=== PATIENT | female | born 1935 | race Caucasian/White ===

== ENCOUNTER 2016-10-09 15:12 | Inpatient (IN) | payer MEDICARE ==
[2016-10-09] MEDS: NS 0.9% 1000 ML* 3,000 ML IV ONE ×3 (16:00→18:50)
[2016-10-09] MEDS ORDERED: Ondansetron INJ* 2 MG/ML VIAL IV ONE (16:15)
[2016-10-09 16:26] LABS: Hematocrit 39 % (35-47); Hemoglobin 12.9 g/dl (12.0-16.0); Mean Corpuscular HGB Conc 33 g/dl (31-36); Mean Corpuscular Hemoglobin 28 pg (27-31); Mean Corpuscular Volume 84 fL (80-97); Mean Platelet Volume 8 um3 (7.4-10.4); Red Blood Count 4.69 10^6/ul (4.0-5.4); Red Cell Distribution Width 14 % (10.5-15); White Blood Count 16.2 10^3/ul (3.5-10.8)
[2016-10-09 16:45] LABS: Albumin 3.6 g/dL (3.2-5.2); BUN/Creatinine Ratio 27.6 (8-20); C Reactive Protein 1.92 mg/L (< 5.00); Calcium 8.9 mg/dL (8.6-10.3); EGFR African American 94.4 (>60); EGFR Non-African American 73.4 (>60); Globulin 2.6 g/dL (2-4); Magnesium 2.1 mg/dL (1.9-2.7); Potassium 3.4 mmol/L (3.5-5.0); Total Bilirubin 0.6 mg/dL (0.2-1.0); Total Protein 6.2 g/dL (6.4-8.9)
--- NOTE | 2016-10-09 16:45 | RAD ---
INDICATION: Syncope COMPARISON: November 14, 2013 TECHNIQUE: An AP portable view obtained at 1624 hours is submitted. FINDINGS: Bones/Soft Tissues: There are no acute bony findings. Cardiomediastinal: The cardiomediastinal silhouette is normal. Lungs: There are no infiltrates. Pleura: There are no pleural effusions. Other: None IMPRESSION: NO ACTIVE DISEASE.
[2016-10-09] MEDS ORDERED: Iohexol 300* (CONTRAST) 10 ML SDV IV ONE (17:26)
[2016-10-09 17:28] LABS: TSH (Thyroid Stimulating Horm) 2.25 mcIU/mL (0.34-5.60)
--- NOTE | 2016-10-09 18:05 | RAD ---
INDICATION: Abdominal pain. Vomiting. Syncope. COMPARISON: None TECHNIQUE: Axial source images were obtained from the hemidiaphragms to the symphysis pubis. The patient refused oral and intravenous contrast leading to inherent limitations. Lung bases: There are pleural and parenchymal changes in the right lung base which may be chronic. Suggest a follow-up chest x-ray.. Liver: The liver is normal in size. There are no masses identified on noncontrast imaging. There is no ductal dilatation. Gallbladder: There are no calcified gallstones. There is no evidence of wall thickening or pericholecystic fluid. Spleen: The spleen is normal in size. There are no masses identified on noncontrast imaging. Pancreas: No gross abnormalities. No ductal dilatation. Adrenal glands: There is no evidence of adrenal mass. Kidneys: No mass or hydronephrosis. No nephrolithiasis Adenopathy: This examination is insensitive in evaluating for adenopathy given the lack of oral and intravenous contrast. No masses are seen, however.. Fluid collections: There are no significant free or localized fluid collections. Vessels:There are atherosclerotic changes involving the aorta and iliac vessels. There is no focal aneurysm. The IVC appears normal. GI tract: Evaluation of the GI tract is very limited. There does appear to be bowel wall thickening and perienteric stranding at the level of the mid transverse colon and extending down to the level of the rectosigmoid junction. There are scattered diverticula of the sigmoid colon. There are no findings of pneumatosis, obstruction, or free intraperitoneal air. Pelvic organs: There is hysterectomy. There is no adnexal mass Bladder: There are no bladder masses. Abdominal and pelvic soft tissues: The extraperitoneal abdominal and pelvic soft tissues appear normal.. Osseous structures: There are no acute osseous findings. Other: None IMPRESSION: MUCOSAL EDEMA AND PERIENTERIC STRANDING EXTENDING FROM THE MID TRANSVERSE COLON TO THE RECTOSIGMOID COLON. AN INFECTIOUS/INFLAMMATORY COLITIS IS CONSIDERED STATISTICALLY MOST LIKELY. NO FINDINGS OF PNEUMATOSIS OR FREE INTRAPERITONEAL AIR.
[2016-10-09] MEDS ORDERED: cefTRIAXone(*) 1 GM in NS 0.9% 50 ML* 50 ML IVPB ONE (18:21)
[2016-10-09] MEDS ORDERED: metroNIDAZOLE IV 500 MG/100ML* 500 MG/100 ML BAG IVPB ONE (18:21)
--- NOTE | 2016-10-09 18:55 | ED ---
Yakov Rodas Billy, scribed for Rodolfo Escalera MD on 10/09/16 at 1613 . Syncope/Near Syncope - HPI Summary HPI Summary: Patient is a 81 year-old female coming to [facility] after 2x syncopal episodes earlier today. Her states that she had several episodes of N/V/D this morning and appeared much paler than usual. He denies any fever, blood in the stool. Nothing makes her symptoms better/worse. During her syncopal episodes, he denies any head trauma. Here in the ED, she complains of abdominal pain. She takes baby ASA daily, no other medications. - History Of Current Complaint Chief Complaint: EDSyncope Time Seen by Provider: 10/09/16 16:08 Hx Obtained From: Patient, Family/Patient Care Coordinator Onset/Duration: Sudden Onset Timing: Intermittent Episode Lasting Context: Unwitnessed Activity At Onset: At Rest Associated Head Trauma: No Aggravating Factor(s): Nothing Alleviating Factor(s): Nothing Associated Signs And Symptoms: Diarrhea, Vomiting, Other - nausea; pale - Allergies/Home Medications Allergies/Adverse Reactions: Allergies Allergy/AdvReac Type Severity Reaction Status Date / Time No Known Allergies Allergy Verified 08/08/12 20:02 Home Medications: Home Medications Aspirin EC Low Dose* [Ecotrin EC Low Dose*] 81 mg PO DAILY 10/09/16 [History Confirmed 10/09/16] PMH/Surg Hx/FS Hx/Imm Hx Endocrine/Hematology History: Reports: Hx Thyroid Disease - NODULE 2008 BIOPSIED Denies: Hx Diabetes Cardiovascular History: Reports: Hx Congenital Heart Disease - atrioseptal deficit, Hx Syncope - post TIA in 2009, Other Cardiovascular Problems/Disorders - atrioseptal defect Denies: Hx Congestive Heart Failure, Hx Hypertension, Hx Pacemaker/ICD Respiratory History: Denies: Hx Asthma History: Denies: Hx Renal Disease Musculoskeletal History: Reports: Hx Arthritis - hands Sensory History: Reports: Hx Contacts or Glasses Denies: Hx Hearing Aid Opthamlomology History: Reports: Hx Contacts or Glasses Neurological History: Reports: Hx Transient Ischemic Attacks (TIA) - TIAs 2000, 2008, 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 night Denies: Other Neuro Impairments/Disorders Psychiatric History: Denies: Hx Panic Disorder - Surgical History Surgery Procedure, Year, and Place: T&A, D&C'S, HYSTERECTOMY - Immunization History Date of Tetanus Vaccine: UTD Date of Influenza Vaccine: FALL 2011 Infectious Disease History: No Infectious Disease History: Denies: Traveled Outside the [place] in Last 30 Days - Family History Known Family History: Positive: Cardiac Disease - father; at age 80 - Social History Alcohol Use: None Substance Use Type: Reports: None Review of Systems Negative: Fever Positive: Abdominal Pain, Vomiting, Diarrhea, Nausea Positive: Other - pale Neurological: Other - syncope All Other Systems Reviewed And Are Negative: Yes Physical Exam Triage Information Reviewed: Yes Vital Signs On Initial Exam: Initial Vitals Temp Pulse Resp BP Pulse Ox 97.5 F 94 16 157/100 100 10/09/16 15:30 10/09/16 15:30 10/09/16 15:30 10/09/16 15:30 10/09/16 15:30 Vital Signs Reviewed: Yes Appearance: Positive: No Pain Distress, Ill-Appearing Skin: Positive: Pale Eyes: Positive: EOMI, [place] ENT: Positive: Other - dry mucous membranes Neck: Positive: Supple, Nontender Respiratory/Lung Sounds: Positive: Clear to Auscultation, Breath Sounds Present Cardiovascular: Positive: RRR Abdomen Description: Positive: Other: - diffuse tenderness Bowel Sounds: Positive: Present Musculoskeletal: Positive: Normal, Strength/ROM Intact Neurological: Positive: Alert, Oriented to Person Place, Time, CN Intact II-III , Other - slightly decreased responsiveness, but responds to voice Psychiatric: Positive: Affect/Mood Appropriate Diagnostics - Vital Signs Vital Signs Temp Pulse Resp BP Pulse Ox 10/09/16 15:30 97.5 F 94 16 157/100 100 - Laboratory Lab Results: Lab Results 10/09/16 10/09/16 10/09/16 Range/Units 16:15 16:15 16:15 WBC 16.2 H (3.5-10.8) 10^3/ul RBC 4.69 (4.0-5.4) 10^6/ul Hgb 12.9 (12.0-16.0) g/dl Hct 39 (35-47) % MCV 84 (80-97) fL MCH 28 (27-31) pg MCHC 33 (31-36) g/dl RDW 14 (10.5-15) % Plt Count 175 (150-450) 10^3/ul MPV 8 (7.4-10.4) um3 Neut % (Auto) 91.7 H (38-83) % Lymph % (Auto) 2.0 L (25-47) % [place] % (Auto) 5.4 (1-9) % Eos % (Auto) 0 (0-6) % Baso % (Auto) 0.9 (0-2) % Absolute Neuts (auto) 14.8 H (1.5-7.7) 10^3/ul Absolute Lymphs (auto) 0.3 L (1.0-4.8) 10^3/ul Absolute Monos (auto) 0.9 H (0-0.8) 10^3/ul Absolute Eos (auto) 0 (0-0.6) 10^3/ul Absolute Basos (auto) 0.2 (0-0.2) 10^3/ul Absolute Nucleated RBC 0 10^3/ul Nucleated RBC % 0 INR (Anticoag Therapy) 0.92 (0.89-1.11) APTT 28.0 (26.0-36.3) seconds Sodium 136 (133-145) mmol/L Potassium 3.4 L (3.5-5.0) mmol/L Chloride 104 (101-111) mmol/L Carbon Dioxide 26 (22-32) mmol/L Anion Gap 6 (2-11) mmol/L BUN 21 (6-24) mg/dL Creatinine 0.76 (0.51-0.95) mg/dL Est GFR ( Amer) 94.4 (>60) Est GFR (Non-Af Amer) 73.4 (>60) BUN/Creatinine Ratio 27.6 H (8-20) Glucose 166 H (70-100) mg/dL Lactic Acid (0.5-2.0) mmol/L Calcium 8.9 (8.6-10.3) mg/dL Magnesium 2.1 (1.9-2.7) mg/dL Total Bilirubin 0.60 (0.2-1.0) mg/dL AST 32 (13-39) U/L ALT 29 (7-52) U/L Alkaline Phosphatase 85 (34-104) U/L Total Creatine Kinase 38 (10-223) U/L CK-MB (CK-2) 1.6 (0.6-6.3) ng/mL Troponin I 0.00 (<0.04) ng/mL C-Reactive Protein 1.92 (< 5.00) mg/L B-Natriuretic Peptide ( - 100) pg/mL Total Protein 6.2 L (6.4-8.9) g/dL Albumin 3.6 (3.2-5.2) g/dL Globulin 2.6 (2-4) g/dL Albumin/Globulin Ratio 1.4 (1-3) Lipase 22 (11.0-82.0) U/L TSH 2.25 (0.34-5.60) mcIU/mL 10/09/16 10/09/16 Range/Units 16:15 16:15 WBC (3.5-10.8) 10^3/ul RBC (4.0-5.4) 10^6/ul Hgb (12.0-16.0) g/dl Hct (35-47) % MCV (80-97) fL MCH (27-31) pg MCHC (31-36) g/dl RDW (10.5-15) % Plt Count (150-450) 10^3/ul MPV (7.4-10.4) um3 Neut % (Auto) (38-83) % Lymph % (Auto) (25-47) % [place] % (Auto) (1-9) % Eos % (Auto) (0-6) % Baso % (Auto) (0-2) % Absolute Neuts (auto) (1.5-7.7) 10^3/ul Absolute Lymphs (auto) (1.0-4.8) 10^3/ul Absolute Monos (auto) (0-0.8) 10^3/ul Absolute Eos (auto) (0-0.6) 10^3/ul Absolute Basos (auto) (0-0.2) 10^3/ul Absolute Nucleated RBC 10^3/ul Nucleated RBC % INR (Anticoag Therapy) (0.89-1.11) APTT (26.0-36.3) seconds Sodium (133-145) mmol/L Potassium (3.5-5.0) mmol/L Chloride (101-111) mmol/L Carbon Dioxide (22-32) mmol/L Anion Gap (2-11) mmol/L BUN (6-24) mg/dL Creatinine (0.51-0.95) mg/dL Est GFR ( Amer) (>60) Est GFR (Non-Af Amer) (>60) BUN/Creatinine Ratio (8-20) Glucose (70-100) mg/dL Lactic Acid 1.2 (0.5-2.0) mmol/L Calcium (8.6-10.3) mg/dL Magnesium (1.9-2.7) mg/dL Total Bilirubin (0.2-1.0) mg/dL AST (13-39) U/L ALT (7-52) U/L Alkaline Phosphatase (34-104) U/L Total Creatine Kinase (10-223) U/L CK-MB (CK-2) (0.6-6.3) ng/mL Troponin I (<0.04) ng/mL C-Reactive Protein (< 5.00) mg/L B-Natriuretic Peptide 49 ( - 100) pg/mL Total Protein (6.4-8.9) g/dL Albumin (3.2-5.2) g/dL Globulin (2-4) g/dL Albumin/Globulin Ratio (1-3) Lipase (11.0-82.0) U/L TSH (0.34-5.60) mcIU/mL Result Diagrams: 10/09/16 16:15 10/09/16 16:15 Lab Statement: Any lab studies that have been ordered have been reviewed, and results considered in the medical decision making process. - Radiology CXR Xray Interpretation: No Acute Changes Radiology Interpretation Completed By: Radiologist - CT abd/pel wo CT Interpretation Completed By: Radiologist - MUCOSAL EDEMA AND PERIENTERIC STRANDING EXTENDING FROM THE MID TRANSVERSE COLON TO THE RECTOSIGMOID COLON. AN INFECTIOUS/INFLAMMATORY COLITIS IS CONSIDERED STATISTICALLY MOST LIKELY. NO FINDINGS OF PNEUMATOSIS OR FREE INTRAPERITONEAL AIR. - EKG 1532 EKG Interpretation: NSR 89 bpm, normal ST segment, no ectopy Re-Evaluation - Re-Evaluation First Eval Re-Evaluation Time: 16:29 Comment: Patient declining CT at this time. Second Eval Re-Evaluation Time: 17:06 Change: Improved Comment: Patient agrees to have CT without PO contrast. Third Eval Re-Evaluation Time: 18:32 Course/Dx Assessment/Plan: ADMIT HOSPITALIST STABLE. - Diagnoses Provider Diagnoses: Syncope, Colitis - Physician Notifications Discussed Care Of Patient With: Dr. Roasrio (hospitalist) @ 171: admission pending CT abd/pel. Dr. Thao (hospitalist) @ 182: will see patient in the ED. Discharge - Discharge Plan Condition: Stable Disposition: ADMITTED TO [facility] Referrals: Philip Burch MD [Primary Care Provider] - The documentation as recorded by the Yakov boyd Billy accurately reflects the service I personally performed and the decisions made by me, Rodolfo Escalera MD.
[2016-10-09] MEDS ORDERED: Ondansetron INJ* 2 MG/ML VIAL IV PRN (19:15)
[2016-10-09] MEDS ORDERED: Acetaminophen TAB* 325 MG PO PRN (19:15)
[2016-10-09] MEDS ORDERED: Morphine INJ* 2 MG/ML 1 ML CARPUJECT IV PRN (19:15)
[2016-10-09] MEDS ORDERED: Enoxaparin(*) 40 MG/0.4 ML SYR SUBCUT SCH (20:00)
--- NOTE | 2016-10-09 20:55 | HP ---
ADMISSION HISTORY AND PHYSICAL: DATE OF ADMISSION: 10/09/16 PRIMARY CARE PROVIDER: Philip Burch MD ADMITTING PROVIDER: FRANCISCO Lim SUPERVISING PHYSICIAN: Edita Thao MD * (DICTATED BY FRANCISCO LIM) CHIEF COMPLAINT: Nausea, vomiting, diarrhea, and syncope. HISTORY OF PRESENT ILLNESS: This is a 81-year-old female who is relatively healthy. She has a history of ASD, osteoarthritis and what sounds like may be partial seizures, but not currently on any medication and followed by Neurology , who presented to the emergency department today with rather sudden onset of nausea, vomiting, and diarrhea. It started after breakfast this morning. Her who ate with her has not been ill. She was feeling well yesterday and has not been running any fevers at home. She has some associated cramping abdominal pain. She has been feeling quite lightheaded and dizzy and has had frequent episodes of diarrhea and vomiting throughout the day today. On two occasions after attempting to standup from the toilet, she collapsed and lost consciousness for a period of time. No seizure-like activity according to her , who witnessed at least one of the events. The patient has not been able to tolerate anything my mouth throughout the day today. The patient denies any recent antibiotic use. PAST MEDICAL HISTORY: 1. ASD. 2. History of partial seizures perhaps. Followed by Neurology, not currently on any medications. 3. Osteoarthritis. PAST SURGICAL HISTORY: Hysterectomy. HOME MEDICATIONS: Aspirin 81 mg p.o. daily. SOCIAL HISTORY: The patient lives at home with her . She denies any smoking history. No regular alcohol consumption. REVIEW OF SYSTEMS: As noted above in HPI and is otherwise negative. PHYSICAL EXAMINATION GENERAL: This is a pleasant, but ill-appearing female, in no acute distress, accompanied by her . VITAL SIGNS: Temperature 97.5 degrees Fahrenheit, pulse 94 beats per minute, respiratory rate 16 per minute, oxygen saturation 100% on room air, blood pressure 157/100 mmHg. HEENT: Head is normocephalic, atraumatic. Mucous membranes are pink and mildly dry. RESPIRATORY: Lungs are clear to auscultation without wheezes, crackles, or rhonchi. CARDIOVASCULAR: Heart has a regular rate and rhythm without murmurs, rubs, or gallops. ABDOMEN: Abdomen is soft with bowel sounds present, but is diffusely tender to palpation. EXTREMITIES: The patient shows no lower extremity edema. SKIN: The patient has a kind of erythematous petechial rash over her lower extremities bilaterally, which she states is chronic for her. PSYCH: The patient is alert and appropriately oriented. DIAGNOSTIC STUDIES/LAB DATA: CBC shows a white blood cell count of 16,200, hemoglobin of 12.9 g/dL, platelet count of 175,000. INR is normal at 0.92 and PTT of 28. Comprehensive metabolic panel shows a sodium of 136 mmol/L, potassium of 3.4 mmol/L. BUN of 21, creatinine 0.76. Random glucose of 166 mg/dL. Transaminases and total bilirubin within normal limits. Troponin is negative. TSH is normal at 2.25 and lipase is normal at 22. IMAGING: EKG shows a normal sinus rhythm. CT of the abdomen and pelvis shows some inflammatory changes consistent with colitis of the transverse through rectosigmoid colon consistent with an infectious or inflammatory colitis. ASSESSMENT AND PLAN: This is a 81-year-old female who is otherwise quite healthy apart from an atrial septal defect and questionable partial seizure disorder, who presented with acute onset nausea, vomiting and diarrhea with 2 syncopal episodes. The patient will be admitted to the hospital for infectious colitis. 1. Suspected infectious colitis - the patient denies any recent antibiotic use. Stool studies including C. diff, PCR are pending at this time. We will empirically treat with Cipro and Flagyl. Supportive care with fluids and antiemetics and pain medication as necessary. 2. Syncope - this is likely a vagal episode and/or due to orthostasis secondary to hypovolemia. We will place her on telemetry monitoring overnight to evaluate for dysrhythmia, but this does not seem to be cardiogenic in origin. This does not seem to represent a seizure either. 3. Atrial septal defect. 4. History of partial seizures, followed by Neurology, but not currently treated. 5. Code status - the patient is full code. 6. DVT prophylaxis - the patient will be started on Lovenox 40 mg subcu daily. 7. Healthcare proxy is her . DISPOSITION: The patient is being admitted to the hospital under inpatient status for infectious colitis and syncope. I anticipate length of stay of greater than 2 midnights. FRANCISCO LIM [id number]/[facility] #: [id number] [facility]ALL[facility]
[2016-10-09] MEDS: Ciprofloxacin 400MG IVPREMIX(* 400 MG/200 ML BAG IVPB SCH (21:22)
[2016-10-10] MEDS: metroNIDAZOLE IV 500 MG/100ML* 500 MG/100 ML BAG IVPB SCH ×3 (04:06→20:12)
[2016-10-10 05:28] LABS: Hematocrit 37 % (35-47); Hemoglobin 12.5 g/dl (12.0-16.0); Mean Corpuscular HGB Conc 33 g/dl (31-36); Mean Corpuscular Hemoglobin 28 pg (27-31); Mean Corpuscular Volume 84 fL (80-97); Mean Platelet Volume 9 um3 (7.4-10.4); Red Blood Count 4.44 10^6/ul (4.0-5.4); Red Cell Distribution Width 14 % (10.5-15); White Blood Count 18.4 10^3/ul (3.5-10.8)
[2016-10-10 05:40] LABS: BUN/Creatinine Ratio 21.3 (8-20); Calcium 8.2 mg/dL (8.6-10.3); EGFR African American 95.9 (>60); EGFR Non-African American 74.5 (>60)
[2016-10-10] MEDS: Ciprofloxacin 400MG IVPREMIX(* 400 MG/200 ML BAG IVPB SCH ×2 (07:51→21:38)
[2016-10-10] MEDS: Aspirin EC Low Dose* 81 MG TAB.EC PO SCH ×2 (10:09→10:19)
[2016-10-10] MEDS: Potassium Chlor TAB* 20 MEQ TAB.ER PO ONE ×2 (10:09→10:20)
[2016-10-10] MEDS ORDERED: Potassium Chloride LIQUID* 20 MEQ PACKET PO ONE (11:00)
--- NOTE | 2016-10-10 15:46 | PN ---
Subjective Date of Service: 10/10/16 Interval History: Pt started having hematochezia that progressed to BRBPR after admission. Denies abd pain, although c/o severe abd cramping yesterday Objective Active Medications: Acetaminophen (Tylenol Tab*) 650 mg PO Q4H PRN PRN Reason: FEVER/PAIN Enoxaparin Sodium (Lovenox(*)) 40 mg SUBCUT Q24H [facility] Last Admin: 10/09/16 21:22 Dose: 40 mg Ciprofloxacin/Dextrose (Cipro 400 Mg Ivpremix(*)) 400 mg in 200 mls @ 200 mls/ hr IVPB Q12H [facility] Last Admin: 10/10/16 07:51 Dose: 200 mls/hr Metronidazole/Sodium Chloride (Flagyl 500 Mg Ivpb*) 500 mg in 100 mls @ 100 mls /hr IVPB Q8H [facility] Last Admin: 10/10/16 11:57 Dose: 100 mls/hr Lactated Ringer's (Lactated Ringers 1000 Ml Bag*) 1,000 mls @ 125 mls/hr IV PER RATE [facility] Last Admin: 10/10/16 07:51 Dose: 125 mls/hr Morphine Sulfate (Morphine Inj (Syringe)*) 2 mg IV Q4H PRN PRN Reason: PAIN Ondansetron HCl (Zofran Inj*) 4 mg IV Q4H PRN PRN Reason: NAUSEA/VOMITING Last Admin: 10/09/16 22:19 Dose: 4 mg Vital Signs 10/09/16 10/09/16 10/09/16 19:30 19:42 20:00 Temperature Pulse Rate 87 Respiratory 20 17 18 Rate Blood Pressure 141/119 111/61 (mmHg) O2 Sat by Pulse 97 Oximetry 10/09/16 10/09/16 10/09/16 20:19 20:30 21:41 Temperature 99 F Pulse Rate 89 Respiratory 17 20 Rate Blood Pressure 153/77 (mmHg) O2 Sat by Pulse 99 Oximetry 10/10/16 10/10/16 10/10/16 00:08 04:14 04:18 Temperature 97.2 F 98.7 F Pulse Rate 93 98 96 Respiratory 16 16 Rate Blood Pressure 151/64 153/65 153/65 (mmHg) O2 Sat by Pulse 97 97 Oximetry 10/10/16 10/10/16 10/10/16 04:19 07:25 08:00 Temperature 98.6 F Pulse Rate 104 101 Respiratory 18 18 Rate Blood Pressure 126/89 148/68 (mmHg) O2 Sat by Pulse 99 Oximetry 10/10/16 11:30 Temperature 98.2 F Pulse Rate 99 Respiratory 16 Rate Blood Pressure 145/57 (mmHg) O2 Sat by Pulse 100 Oximetry Oxygen Devices in Use Now: None Appearance: 81 yo F in nAd, aAOx3 Eyes: No Scleral Icterus, PERRLA Ears/Nose/Mouth/Throat: NL Teeth, Lips, Gums, Mucous Membranes Moist Neck: NL Appearance and Movements; NL JVP, Trachea Midline Respiratory: Symmetrical Chest Expansion and Respiratory Effort, Clear to Auscultation Cardiovascular: NL Sounds; No Murmurs; No JVD, RRR Abdominal: NL Sounds; No Tenderness; No Distention, - - LLQ tenderness, no rebound, no guarding, BS+ Lymphatic: No Cervical Adenopathy Extremities: No Edema, No Clubbing, Cyanosis Skin: No Rash or Ulcers, No Nodules or Sclerosis Neurological: Alert and Oriented x 3, NL Muscle Strength and Tone Result Diagrams: 10/10/16 04:32 10/10/16 04:32 Additional Lab and Data: Lab Results 10/09/16 10/09/16 10/09/16 Range/Units 16:15 16:15 16:15 WBC 16.2 H (3.5-10.8) 10^3/ul RBC 4.69 (4.0-5.4) 10^6/ul Hgb 12.9 (12.0-16.0) g/dl Hct 39 (35-47) % MCV 84 (80-97) fL MCH 28 (27-31) pg MCHC 33 (31-36) g/dl RDW 14 (10.5-15) % Plt Count 175 (150-450) 10^3/ul MPV 8 (7.4-10.4) um3 Neut % (Auto) 91.7 H (38-83) % Lymph % (Auto) 2.0 L (25-47) % [place] % (Auto) 5.4 (1-9) % Eos % (Auto) 0 (0-6) % Baso % (Auto) 0.9 (0-2) % Absolute Neuts (auto) 14.8 H (1.5-7.7) 10^3/ul Absolute Lymphs (auto) 0.3 L (1.0-4.8) 10^3/ul Absolute Monos (auto) 0.9 H (0-0.8) 10^3/ul Absolute Eos (auto) 0 (0-0.6) 10^3/ul Absolute Basos (auto) 0.2 (0-0.2) 10^3/ul Absolute Nucleated RBC 0 10^3/ul Nucleated RBC % 0 INR (Anticoag Therapy) 0.92 (0.89-1.11) APTT 28.0 (26.0-36.3) seconds Sodium 136 (133-145) mmol/L Potassium 3.4 L (3.5-5.0) mmol/L Chloride 104 (101-111) mmol/L Carbon Dioxide 26 (22-32) mmol/L Anion Gap 6 (2-11) mmol/L BUN 21 (6-24) mg/dL Creatinine 0.76 (0.51-0.95) mg/dL Est GFR ( Amer) 94.4 (>60) Est GFR (Non-Af Amer) 73.4 (>60) BUN/Creatinine Ratio 27.6 H (8-20) Glucose 166 H (70-100) mg/dL Lactic Acid (0.5-2.0) mmol/L Calcium 8.9 (8.6-10.3) mg/dL Magnesium 2.1 (1.9-2.7) mg/dL Total Bilirubin 0.60 (0.2-1.0) mg/dL AST 32 (13-39) U/L ALT 29 (7-52) U/L Alkaline Phosphatase 85 (34-104) U/L Total Creatine Kinase 38 (10-223) U/L CK-MB (CK-2) 1.6 (0.6-6.3) ng/mL Troponin I 0.00 (<0.04) ng/mL C-Reactive Protein 1.92 (< 5.00) mg/L B-Natriuretic Peptide ( - 100) pg/mL Total Protein 6.2 L (6.4-8.9) g/dL Albumin 3.6 (3.2-5.2) g/dL Globulin 2.6 (2-4) g/dL Albumin/Globulin Ratio 1.4 (1-3) Lipase 22 (11.0-82.0) U/L TSH 2.25 (0.34-5.60) mcIU/mL 10/09/16 10/09/16 Range/Units 16:15 16:15 WBC (3.5-10.8) 10^3/ul RBC (4.0-5.4) 10^6/ul Hgb (12.0-16.0) g/dl Hct (35-47) % MCV (80-97) fL MCH (27-31) pg MCHC (31-36) g/dl RDW (10.5-15) % Plt Count (150-450) 10^3/ul MPV (7.4-10.4) um3 Neut % (Auto) (38-83) % Lymph % (Auto) (25-47) % [place] % (Auto) (1-9) % Eos % (Auto) (0-6) % Baso % (Auto) (0-2) % Absolute Neuts (auto) (1.5-7.7) 10^3/ul Absolute Lymphs (auto) (1.0-4.8) 10^3/ul Absolute Monos (auto) (0-0.8) 10^3/ul Absolute Eos (auto) (0-0.6) 10^3/ul Absolute Basos (auto) (0-0.2) 10^3/ul Absolute Nucleated RBC 10^3/ul Nucleated RBC % INR (Anticoag Therapy) (0.89-1.11) APTT (26.0-36.3) seconds Sodium (133-145) mmol/L Potassium (3.5-5.0) mmol/L Chloride (101-111) mmol/L Carbon Dioxide (22-32) mmol/L Anion Gap (2-11) mmol/L BUN (6-24) mg/dL Creatinine (0.51-0.95) mg/dL Est GFR ( Amer) (>60) Est GFR (Non-Af Amer) (>60) BUN/Creatinine Ratio (8-20) Glucose (70-100) mg/dL Lactic Acid 1.2 (0.5-2.0) mmol/L Calcium (8.6-10.3) mg/dL Magnesium (1.9-2.7) mg/dL Total Bilirubin (0.2-1.0) mg/dL AST (13-39) U/L ALT (7-52) U/L Alkaline Phosphatase (34-104) U/L Total Creatine Kinase (10-223) U/L CK-MB (CK-2) (0.6-6.3) ng/mL Troponin I (<0.04) ng/mL C-Reactive Protein (< 5.00) mg/L B-Natriuretic Peptide 49 ( - 100) pg/mL Total Protein (6.4-8.9) g/dL Albumin (3.2-5.2) g/dL Globulin (2-4) g/dL Albumin/Globulin Ratio (1-3) Lipase (11.0-82.0) U/L TSH (0.34-5.60) mcIU/mL Microbiology and Other Data: Microbiology 10/09/16 20:15 Stool Gross Appearance - Final Stool C. difficile DNA Amplification - Final 027 Presumptive NEGATIVE Toxigenic C.diff NEGATIVE Stool Lactoferrin - Final 10/09/16 20:15 Stool Gross Appearance - Final Stool 10/09/16 20:15 Stool Gross Appearance - Final Stool Stool Occult Blood (MARCIA) - Final Assess/Plan/Problems-Billing Assessment: - Patient Problems (1) Lower GI bleed Comment: mild, suspect infectious or iuschemic colitis. Acute , lower D/c ASA and DVT prophylaxis. Protonix IV daily Chrck H&H in aM (2) Colitis Comment: infectious vs ischemic. symptoms improving, but leukocytosis worse cont Cipro/Flagyl GI consulted (3) Syncope due to orthostatic hypotension Comment: And dehydration. Orthostasis documented in ED. cont IVF telemtry shows no arrythmia, will d/c (4) Hypokalemia Comment: replacing IV (5) DVT prophylaxis Comment: SCD's, no anticoagulation due to GI bleed
[2016-10-10] MEDS: Pantoprazole IV* 40 MG IV SCH (16:06)
[2016-10-10 16:53] LABS: Hematocrit 34 % (35-47); Hemoglobin 11.3 g/dl (12.0-16.0); Mean Corpuscular HGB Conc 33 g/dl (31-36); Mean Corpuscular Hemoglobin 28 pg (27-31); Mean Corpuscular Volume 84 fL (80-97); Mean Platelet Volume 8 um3 (7.4-10.4); Red Blood Count 4.04 10^6/ul (4.0-5.4); Red Cell Distribution Width 14 % (10.5-15)
--- NOTE | 2016-10-10 22:13 | CONS ---
CONSULTATION REPORT: DATE OF CONSULTATION: 10/10/16 REQUESTING PHYSICIAN: Dr. Thao. PRIMARY CARE PHYSICIAN: Philip Burch MD INDICATION: Colitis. NARRATIVE: Mrs. Gorman is a very pleasant 81-year-old female who has a history of ASD, remote seizure history, and osteoarthritis, who states that she was in her normal state of good health up until just a couple a days ago. Friday evening, she developed abdominal pain and diarrhea. She also developed nausea, vomiting, which persisted throughout the day yesterday and she states that she felt absolutely terrible yesterday. She did come to the emergency room , at which time CT revealed left-sided colitis and she was admitted to the hospital with working diagnosis of infectious colitis. She was started on Cipro and Flagyl. She denies any sick contacts. She has noted a moderate amount of blood in her stools just yesterday. She has had diffuse crampy abdominal pain coming in waves. Denies any new medications. She denied any recent antibiotic use. She has never had colitis in the past. Of note, her outpatient bag liner is Dr. Reynoso. He did perform an upper endoscopy on her last year for abdominal pain. He noted in his EGD report that she has had numerous colonoscopies in the past; however, her last colonoscopy was in [address] and was performed [address] Reynoso and he said at that time, it was technically and extremely difficult colonoscopy. Currently, she states that she is feeling much better. She has been started on fluids and IV antibiotics. She does not have much of an appetite right now. She denies any further nausea or vomiting. PASTA MEDICAL HISTORY: Please see the HPI. PAST SURGICAL HISTORY: Hysterectomy. MEDICATIONS AT HOME: Include 81 mg of aspirin. SOCIAL HISTORY: No tobacco or alcohol. No IV drug use. She does live in her own home with her . REVIEW OF SYSTEMS: 12 systems were reviewed, other than that mentioned in the HPI were unremarkable. PHYSICAL EXAM: Temperature is 98.2, blood pressure 145/57, pulse 99. General: Well-appearing elderly female, appears slightly older than her stated age, alert , oriented, pleasant, fluent. HEENT: Mucous membranes are moist without lesions, ulcers, or exudate. Neck is supple. Trachea is midline. Head is normocephalic, atraumatic. Dentition is slightly poor. Heart: Regular rate and rhythm. Lungs: Clear to auscultation. Abdomen: Slightly distended. Positive bowel sounds, soft, tender more on the left side versus the right side. No rebound, no guarding. No masses were felt. No hepatosplenomegaly. Skin is warm and dry. Good capillary refill. DIAGNOSTIC STUDIES/LAB DATA: Of note, white count went from 16.2 to 18.4, hemoglobin is 12.5, platelets are 159, BUN 16, creatinine 0.75, glucose 165. CT again shows mid transverse to rectosigmoid colitis. She has a negative C. diff and she is positive for blood in the stool. ASSESSMENT AND PLAN: This is a very pleasant 81-year-old female who presents with bloody diarrhea, abdominal pain, nausea, vomiting, elevated white count and a CT showing colitis. I do wonder I agree that most likely this is an infectious colitis. She has already been started on Cipro and Flagyl and she is improving. Less likely, could be an ischemic colitis versus inflammatory bowel disease. I doubt diverticulitis. I would recommend we continue with current medications, antibiotics, and IV fluids and I will follow her on closely. CC: Dr. Thao; Philip Burch MD* [id number]/[facility] #: [id number] [facility]
[2016-10-11] MEDS: metroNIDAZOLE IV 500 MG/100ML* 500 MG/100 ML BAG IVPB SCH ×3 (03:29→19:46)
[2016-10-11 06:21] LABS: Hematocrit 38 % (35-47); Hemoglobin 12.5 g/dl (12.0-16.0); Mean Corpuscular HGB Conc 33 g/dl (31-36); Mean Corpuscular Hemoglobin 28 pg (27-31); Mean Corpuscular Volume 84 fL (80-97); Mean Platelet Volume 8 um3 (7.4-10.4); Red Blood Count 4.52 10^6/ul (4.0-5.4); Red Cell Distribution Width 14 % (10.5-15); White Blood Count 18.2 10^3/ul (3.5-10.8)
[2016-10-11 06:39] LABS: BUN/Creatinine Ratio 20.6 (8-20); Calcium 8.3 mg/dL (8.6-10.3); EGFR African American 107.3 (>60); EGFR Non-African American 83.5 (>60); Potassium 3.1 mmol/L (3.5-5.0)
[2016-10-11] MEDS: Ciprofloxacin 400MG IVPREMIX(* 400 MG/200 ML BAG IVPB SCH ×2 (07:54→21:01)
[2016-10-11] MEDS: Potassium Chloride LIQUID* 20 MEQ PACKET PO ONE ×2 (09:22→16:28)
[2016-10-11] MEDS: amLODIPine TAB* 5 MG PO SCH (11:37)
--- NOTE | 2016-10-11 14:31 | PN ---
Subjective Date of Service: 10/11/16 Interval History: pt still c/o diarrhea. Pt is not sure if there is still blood present in stool Objective Active Medications: Acetaminophen (Tylenol Tab*) 650 mg PO Q4H PRN PRN Reason: FEVER/PAIN Amlodipine Besylate (Norvasc Tab*) 5 mg PO DAILY [facility] Last Admin: 10/11/16 11:37 Dose: 5 mg Ciprofloxacin/Dextrose (Cipro 400 Mg Ivpremix(*)) 400 mg in 200 mls @ 200 mls/ hr IVPB Q12H [facility] Last Admin: 10/11/16 07:54 Dose: 200 mls/hr Metronidazole/Sodium Chloride (Flagyl 500 Mg Ivpb*) 500 mg in 100 mls @ 100 mls /hr IVPB Q8H [facility] Last Admin: 10/11/16 11:15 Dose: 100 mls/hr Morphine Sulfate (Morphine Inj (Syringe)*) 2 mg IV Q4H PRN PRN Reason: PAIN Ondansetron HCl (Zofran Inj*) 4 mg IV Q4H PRN PRN Reason: NAUSEA/VOMITING Last Admin: 10/09/16 22:19 Dose: 4 mg Pantoprazole Sodium (Protonix Iv*) 40 mg IV Q24H [facility] Last Admin: 10/10/16 16:06 Dose: 40 mg Vital Signs 10/10/16 10/10/16 10/10/16 15:27 20:00 21:06 Temperature 98.1 F 97.9 F 98.7 F Pulse Rate 96 98 96 Respiratory 16 12 16 Rate Blood Pressure 143/71 144/69 161/65 (mmHg) O2 Sat by Pulse 97 96 96 Oximetry 10/10/16 10/11/16 10/11/16 23:45 03:40 07:55 Temperature 97.2 F 97.8 F Pulse Rate 98 98 95 Respiratory 16 15 16 Rate Blood Pressure 161/77 158/70 169/77 (mmHg) O2 Sat by Pulse 96 97 97 Oximetry 10/11/16 10/11/16 10/11/16 08:00 08:15 11:15 Temperature 99.1 F 97.8 F Pulse Rate 92 Respiratory 18 16 Rate Blood Pressure 174/78 (mmHg) O2 Sat by Pulse 98 Oximetry Oxygen Devices in Use Now: None Appearance: 81 yo F in nAd, aAOx3 Eyes: No Scleral Icterus, PERRLA Ears/Nose/Mouth/Throat: NL Teeth, Lips, Gums, Mucous Membranes Moist Neck: NL Appearance and Movements; NL JVP, Trachea Midline Respiratory: Symmetrical Chest Expansion and Respiratory Effort, Clear to Auscultation Cardiovascular: NL Sounds; No Murmurs; No JVD, RRR Abdominal: - - LLQ tenderness, no rebound, no guarding, BS+ Lymphatic: No Cervical Adenopathy Extremities: No Clubbing, Cyanosis, - - +1 pitting pedal edema b/l Skin: No Rash or Ulcers, No Nodules or Sclerosis Neurological: Alert and Oriented x 3, NL Muscle Strength and Tone Result Diagrams: 10/11/16 05:57 10/11/16 05:57 Additional Lab and Data: Lab Results 10/09/16 10/09/16 10/09/16 Range/Units 16:15 16:15 16:15 WBC 16.2 H (3.5-10.8) 10^3/ul RBC 4.69 (4.0-5.4) 10^6/ul Hgb 12.9 (12.0-16.0) g/dl Hct 39 (35-47) % MCV 84 (80-97) fL MCH 28 (27-31) pg MCHC 33 (31-36) g/dl RDW 14 (10.5-15) % Plt Count 175 (150-450) 10^3/ul MPV 8 (7.4-10.4) um3 Neut % (Auto) 91.7 H (38-83) % Lymph % (Auto) 2.0 L (25-47) % [place] % (Auto) 5.4 (1-9) % Eos % (Auto) 0 (0-6) % Baso % (Auto) 0.9 (0-2) % Absolute Neuts (auto) 14.8 H (1.5-7.7) 10^3/ul Absolute Lymphs (auto) 0.3 L (1.0-4.8) 10^3/ul Absolute Monos (auto) 0.9 H (0-0.8) 10^3/ul Absolute Eos (auto) 0 (0-0.6) 10^3/ul Absolute Basos (auto) 0.2 (0-0.2) 10^3/ul Absolute Nucleated RBC 0 10^3/ul Nucleated RBC % 0 INR (Anticoag Therapy) 0.92 (0.89-1.11) APTT 28.0 (26.0-36.3) seconds Sodium 136 (133-145) mmol/L Potassium 3.4 L (3.5-5.0) mmol/L Chloride 104 (101-111) mmol/L Carbon Dioxide 26 (22-32) mmol/L Anion Gap 6 (2-11) mmol/L BUN 21 (6-24) mg/dL Creatinine 0.76 (0.51-0.95) mg/dL Est GFR ( Amer) 94.4 (>60) Est GFR (Non-Af Amer) 73.4 (>60) BUN/Creatinine Ratio 27.6 H (8-20) Glucose 166 H (70-100) mg/dL Lactic Acid (0.5-2.0) mmol/L Calcium 8.9 (8.6-10.3) mg/dL Magnesium 2.1 (1.9-2.7) mg/dL Total Bilirubin 0.60 (0.2-1.0) mg/dL AST 32 (13-39) U/L ALT 29 (7-52) U/L Alkaline Phosphatase 85 (34-104) U/L Total Creatine Kinase 38 (10-223) U/L CK-MB (CK-2) 1.6 (0.6-6.3) ng/mL Troponin I 0.00 (<0.04) ng/mL C-Reactive Protein 1.92 (< 5.00) mg/L B-Natriuretic Peptide ( - 100) pg/mL Total Protein 6.2 L (6.4-8.9) g/dL Albumin 3.6 (3.2-5.2) g/dL Globulin 2.6 (2-4) g/dL Albumin/Globulin Ratio 1.4 (1-3) Lipase 22 (11.0-82.0) U/L TSH 2.25 (0.34-5.60) mcIU/mL 10/09/16 10/09/16 Range/Units 16:15 16:15 WBC (3.5-10.8) 10^3/ul RBC (4.0-5.4) 10^6/ul Hgb (12.0-16.0) g/dl Hct (35-47) % MCV (80-97) fL MCH (27-31) pg MCHC (31-36) g/dl RDW (10.5-15) % Plt Count (150-450) 10^3/ul MPV (7.4-10.4) um3 Neut % (Auto) (38-83) % Lymph % (Auto) (25-47) % [place] % (Auto) (1-9) % Eos % (Auto) (0-6) % Baso % (Auto) (0-2) % Absolute Neuts (auto) (1.5-7.7) 10^3/ul Absolute Lymphs (auto) (1.0-4.8) 10^3/ul Absolute Monos (auto) (0-0.8) 10^3/ul Absolute Eos (auto) (0-0.6) 10^3/ul Absolute Basos (auto) (0-0.2) 10^3/ul Absolute Nucleated RBC 10^3/ul Nucleated RBC % INR (Anticoag Therapy) (0.89-1.11) APTT (26.0-36.3) seconds Sodium (133-145) mmol/L Potassium (3.5-5.0) mmol/L Chloride (101-111) mmol/L Carbon Dioxide (22-32) mmol/L Anion Gap (2-11) mmol/L BUN (6-24) mg/dL Creatinine (0.51-0.95) mg/dL Est GFR ( Amer) (>60) Est GFR (Non-Af Amer) (>60) BUN/Creatinine Ratio (8-20) Glucose (70-100) mg/dL Lactic Acid 1.2 (0.5-2.0) mmol/L Calcium (8.6-10.3) mg/dL Magnesium (1.9-2.7) mg/dL Total Bilirubin (0.2-1.0) mg/dL AST (13-39) U/L ALT (7-52) U/L Alkaline Phosphatase (34-104) U/L Total Creatine Kinase (10-223) U/L CK-MB (CK-2) (0.6-6.3) ng/mL Troponin I (<0.04) ng/mL C-Reactive Protein (< 5.00) mg/L B-Natriuretic Peptide 49 ( - 100) pg/mL Total Protein (6.4-8.9) g/dL Albumin (3.2-5.2) g/dL Globulin (2-4) g/dL Albumin/Globulin Ratio (1-3) Lipase (11.0-82.0) U/L TSH (0.34-5.60) mcIU/mL Microbiology and Other Data: Microbiology 10/09/16 20:15 Stool Gross Appearance - Final Stool C. difficile DNA Amplification - Final 027 Presumptive NEGATIVE Toxigenic C.diff NEGATIVE Stool Lactoferrin - Final 10/09/16 20:15 Stool Gross Appearance - Final Stool 10/09/16 20:15 Stool Gross Appearance - Final Stool Stool Occult Blood (MARCIA) - Final Assess/Plan/Problems-Billing Assessment: - Patient Problems (1) Lower GI bleed Comment: mild, suspect infectious or ischemic colitis. Acute , lower D/c'd ASA and DVT prophylaxis. Hb stable appreciate Dr. Lyon's consult (2) Colitis Comment: infectious vs ischemic. symptoms improving, but leukocytosis persists cont Cipro/Flagyl GI consulted (3) Syncope due to orthostatic hypotension Comment: And dehydration. Orthostasis documented in ED. cont IVF (4) Hypokalemia Comment: replacing PO (5) DVT prophylaxis Comment: SCD's, no anticoagulation due to GI bleed Status and Disposition: inpatient, plan to d/c home when medically stable
[2016-10-11] MEDS ORDERED: Potassium Chlor TAB* 20 MEQ TAB.ER PO ONE (16:04)
[2016-10-11] MEDS: Pantoprazole IV* 40 MG IV SCH (16:27)
[2016-10-12] MEDS: metroNIDAZOLE IV 500 MG/100ML* 500 MG/100 ML BAG IVPB SCH ×2 (03:54→12:46)
[2016-10-12 07:53] LABS: Hematocrit 35 % (35-47); Hemoglobin 11.8 g/dl (12.0-16.0); Mean Corpuscular HGB Conc 33 g/dl (31-36); Mean Corpuscular Hemoglobin 28 pg (27-31); Mean Corpuscular Volume 84 fL (80-97); Mean Platelet Volume 8 um3 (7.4-10.4); Red Blood Count 4.22 10^6/ul (4.0-5.4); Red Cell Distribution Width 14 % (10.5-15); White Blood Count 13.1 10^3/ul (3.5-10.8)
[2016-10-12] MEDS: amLODIPine TAB* 5 MG PO SCH (08:06)
[2016-10-12 08:07] LABS: BUN/Creatinine Ratio 14.3 (8-20); Calcium 8.2 mg/dL (8.6-10.3); EGFR African American 134.3 (>60); EGFR Non-African American 104.4 (>60); Potassium 2.9 mmol/L (3.5-5.0)
[2016-10-12] MEDS: Ciprofloxacin 400MG IVPREMIX(* 400 MG/200 ML BAG IVPB SCH (08:07)
[2016-10-12] MEDS ORDERED: amLODIPine TAB* 5 MG PO SCH (09:43)
[2016-10-12 10:53] VITALS: BP 132/60
[2016-10-12] MEDS: KCL 10 MEQ/50 ML IVPREMIX* 10 MEQ/50 ML BAG IV SCH ×3 (12:09→13:23)
[2016-10-12] MEDS ORDERED: Potassium Chlor TAB* 20 MEQ TAB.ER PO ONE (13:01)
--- NOTE | 2016-10-13 00:54 | DS ---
DISCHARGE SUMMARY: DATE OF ADMISSION: 10/09/16 DATE OF DISCHARGE: 10/12/16 PRIMARY CARE PROVIDER: Dr. Burch. HAND III CUTTER: Silvano Lyon MD DISCHARGE DIAGNOSES: 1. Colitis with subsequent lower GI bleed most likely related to infectious colitis. 2. Hypokalemia. 3. Hypertension. SECONDARY DIAGNOSES: 1. History of atrial septal defect. 2. History of partial seizures. 3. Osteoarthritis. MEDICATIONS ON DISCHARGE: Include: 1. Aspirin 81 mg daily to be started on 10/17/16. 2. Augmentin 875 mg p.o. b.i.d. for 10 days total. 3. Metronidazole 500 mg p.o. t.i.d. for 10 days total. 4. Potassium chloride 20 mEq daily for 7 days total. LABORATORY DATA AND STUDIES PERFORMED DURING THE HOSPITAL STAY: Included: On 10/12/16: White blood cell count of 13.1, hemoglobin of 11.8, hematocrit of 35, and platelets 172. On 10/12/16: Sodium was 135, potassium 2.9, chloride 102, carbon dioxide 34, BUN 8, and creatinine 0.56. Microbiology studies included stool occult blood that was positive. The stool studies were also negative for cryptosporidium and giardia. That was also C. difficile negative and fecal lactoferrin was also negative. There was negative Shiga toxin 1 and 2. Blood cultures obtained on admission were negative today, the date of discharge. Rapid flu test was also negative. CT of the abdomen and pelvis obtained on 10/09/16, impression: "Mucosal edema and perienteric stranding extending from the mid transverse colon to the rectosigmoid colon. An infectious inflammatory colitis is considered, specifically most likely. No findings of pneumatosis or free intraperitoneal air." CONSULTANTS DURING THE HOSPITAL STAY: Included Dr. Silvano Lyon from Gastroenterology. HOSPITALIZATION COURSE: Sylvia Gorman is a 81-year-old female who presented complaining of abdominal pain, nausea, vomiting, and syncope. When the patient presented to the emergency department, she appeared dehydrated complaining of profuse watery diarrhea and lower abdominal cramping. Her syncope was noted to be due to orthostatic hypotension that was documented in the emergency department. The patient developed lower GI bleed over the course of her illness in the hospital. She had several bloody stools. Initially, it was hematochezia that somewhat progressed. Nevertheless, her hemoglobin and hematocrit had been stable throughout the hospital stay and the bleed resolved when the diarrhea started resolving. Initially, left lower quadrant abdominal pain started resolving and by the time of discharge, the patient had no pain or tenderness whatsoever. Due to marked leukocytosis, it was presumed that the patient's colitis is infectious. Dr. Lyon saw the patient from Gastroenterology consultation who also suspected an infectious etiology of the patient's colitis. The patient was treated with ciprofloxacin and Flagyl with good results and by the time of discharge, she had been afebrile and her leukocytosis started resolving. On the day of discharge, the patient also tolerated regular diet. After discharge, the patient is recommended to follow up with low-fiber diet initially. She is being discharged on 10 days' worth of Augmentin and metronidazole. Her aspirin is going to be held until a few days after discharge due to her history of lower GI bleed. PHYSICAL EXAMINATION AT THE TIME OF DISCHARGE: Vital signs: Blood pressure 132 /60, heart rate 88 and regular, respiratory rate 16, oxygen saturation 99% on room air, and temperature 97.9. General: The patient is a very pleasant 81- year- old female who is in no acute distress. Alert, awake, and oriented x3. HEENT: Head is atraumatic, normocephalic. Eyes: Pupils equal, reactive to light and accommodation. Oropharynx clear. Mucosa moist. Neck: Supple. No JVD, no bruit bilaterally. Respiratory: Clear to auscultation bilaterally. Cardiovascular: Regular rate and rhythm. No murmur. Abdomen: Soft, nontender. Bowel sounds present in all 4 quadrants. Extremities: There is trace bilateral pedal edema. Pulses are +2 bilaterally. No clubbing or cyanosis. Neuro Evaluation: Cranial nerves II through XII grossly intact. Motor strength is 5/5 bilaterally. Please note the patient was hypertensive during the hospital stay. She was started on Norvasc. She stated that she feels dizzy when she uses the Norvasc and she stated that usually she is normotensive or hypotensive and the only reason why she was hypertensive during the hospital stay is due to stress that she attributed to hospitalization. At discharge, she requested not to continue her amlodipine that was not prescribed. Please note that this is a short summary of the patient's hospital stay. Please refer to further medical record for details. TIME SPENT: Approximately 35 minutes was spent on the patient's discharge. CC: Dr. Burch; Dr. Lyon* [id number]/[facility] #: [id number] [facility]ENTERLili
== END 2016-10-12 16:03 | disposition home or self-care (01) | DRG 392 ==
LOC: ED 15:12 → MEDTELE 19:15 → MED 10-10 21:45
PROVIDERS: ADMIT Internal Medicine; ATTEND Internal Medicine
DX: A09 Infectious gastroenteritis and colitis, unspecified (principal); K92.1 Melena; Q21.1 Atrial septal defect; E86.0 Dehydration; M19.90 Unspecified osteoarthritis, unspecified site; R55 Syncope and collapse; E86.1 Hypovolemia; M19.049 Primary osteoarthritis, unspecified hand; I95.1 Orthostatic hypotension; E87.6 Hypokalemia; I10 Essential (primary) hypertension; Z90.710 Acquired absence of both cervix and uterus; Z86.73 Personal history of transient ischemic attack (TIA), and cerebral infarction without residual deficits; Z82.49 Family history of ischemic heart disease and other diseases of the circulatory system; Z79.82 Long term (current) use of aspirin
CPT/HCPCS: 36415; 71010; 74176; 80048; 80053; 82272; 82550; 82553; 83605; 83630; 83690; 83735; 83880; 84443; 84484; 85025; 85027; 85610; 85730; 86140; 86141; 87040; 87045; 87046; 87077; 87328; 87329; 87493; 87502; 87899; 93005; 96374; 99284; A9270-GY; J0696; J0744; J1650; J2405; J3480; J3490

== ENCOUNTER 2020-04-23 16:46 | Inpatient (IN) ==
[2020-04-23 17:39] LABS: ABS Basophils 0.1 10^3/ul (0-0.2); ABS Lymphocytes 0.4 10^3/ul (1.0-4.8); ABS Monocytes 0.6 10^3/ul (0-0.8); ABS Neutrophils 13.2 10^3/ul (1.5-7.7); Hematocrit 39 % (35-47); Hemoglobin 13.2 g/dL (12.0-16.0); Mean Corpuscular HGB Conc 34 g/dL (31-36); Mean Corpuscular Hemoglobin 29 pg (27-31); Mean Corpuscular Volume 84 fL (80-97); Mean Platelet Volume 7.7 fL (7.4-10.4); Platelet Count 236 10^3/uL (150-450); Red Blood Count 4.61 10^6 /uL (3.70-4.87); Red Cell Distribution Width 14 % (10-15); White Blood Count 14.4 10^3/uL (3.5-10.8)
[2020-04-23 17:44] LABS: INR 0.99 (0.82-1.09)
[2020-04-23 17:59] LABS: Albumin 4.3 g/dL (3.2-5.2); Albumin/Globulin Ratio 1.5 (1-3); BUN/Creatinine Ratio 16.5 (8-20); C Reactive Protein 1.1 mg/L (<8.01); Calcium 9.6 mg/dL (8.6-10.3); EGFR African American 61.9 (>60); EGFR Non-African American 51.2 (>60); Globulin 2.9 g/dL (2-4); Potassium 3.5 mmol/L (3.5-5.0); Total Bilirubin 0.6 mg/dL (0.2-1.0); Total Protein 7.2 g/dL (6.4-8.9)
[2020-04-23 18:00] LABS: Troponin I 0.01 ng/mL (<0.03)
[2020-04-23 18:30] LABS: TSH Ultra Thyroid Stim Horm 2.55 mcIU/mL (0.34-5.60)
[2020-04-23] MEDS ORDERED: NS 0.9% 1000 ml BAG 1,000 ML IV ONE (18:51)
[2020-04-23 20:27] LABS: Urine Appearance Cloudy; Urine Bilirubin Negative (Negative); Urine Blood Negative (Negative); Urine Color Yellow; Urine Glucose 1+(50 mg/dL) (Negative); Urine Ketones 1+ (Negative); Urine Nitrite Negative (Negative); Urine Protein 1+(30 mg/dL) (Negative); Urine Specific Gravity 1.014 (1.010-1.030); Urine Urobilinogen Negative (Negative)
[2020-04-23 20:29] LABS: Urine Bacteria Absent (Absent); Urine Red Blood Cell 1+(3-5/hpf) (Absent); Urine Squamous Epithelial Cell Present (Absent); Urine White Blood Cell Trace(0-5/hpf) (Absent)
[2020-04-23] MEDS ORDERED: Labetalol IV 5 MG/ML 20 ml VIAL IV PUSH ONE (21:34)
[2020-04-23] MEDS ORDERED: levETIRAcetam 1000MG IVPREMIX 1,000 MG/100 ML BAG IVPB ONE (21:37)
[2020-04-23] MEDS ORDERED: Morphine 2 MG/ML SYRINGE IV PRN (22:28)
[2020-04-23] MEDS ORDERED: Ondansetron 4 mg VIAL 2 MG/ML 2 ml VIAL IV PRN (22:28)
[2020-04-23] MEDS ORDERED: NS 0.9% 1000 ml BAG 1,000 ML IV SCH (22:30)
[2020-04-23] MEDS ORDERED: Iodixanol (CONTRAST) 320 MG/ML 100 ML SDV IV ONE (22:40)
[2020-04-24] MEDS: NS 0.9% 1000 ml BAG 1,000 ML IV SCH ×4 (03:18→23:09)
[2020-04-24] MEDS ORDERED: NS 0.9% 1000 ml BAG 1,000 ML IV ONE (04:54)
[2020-04-24 05:13] LABS: ABS Lymphocytes 0.8 10^3/ul (1.0-4.8); ABS Monocytes 1.1 10^3/ul (0-0.8); Eosinophil % 0.2 %; Hematocrit 33 % (35-47); Hemoglobin 11.1 g/dL (12.0-16.0); Lymphocyte % 7.2 %; Mean Corpuscular HGB Conc 34 g/dL (31-36); Mean Corpuscular Hemoglobin 29 pg (27-31); Mean Corpuscular Volume 85 fL (80-97); Mean Platelet Volume 7.6 fL (7.4-10.4); Platelet Count 192 10^3/uL (150-450); Red Blood Count 3.88 10^6 /uL (3.70-4.87); Red Cell Distribution Width 14 % (10-15)
[2020-04-24 05:24] LABS: Calcium 8.2 mg/dL (8.6-10.3); Potassium 3.3 mmol/L (3.5-5.0)
[2020-04-24 05:30] LABS: BUN/Creatinine Ratio 21.3 (8-20); EGFR African American 89.3 (>60); EGFR Non-African American 73.8 (>60); HDL Cholesterol 57.4 mg/dL
[2020-04-24 06:43] LABS: Urine Appearance Clear; Urine Bilirubin Negative (Negative); Urine Blood 1+ (Negative); Urine Color Yellow; Urine Glucose 1+(50 mg/dL) (Negative); Urine Ketones 1+ (Negative); Urine Nitrite Negative (Negative); Urine Protein Negative (Negative); Urine Specific Gravity 1.056 (1.010-1.030); Urine Urobilinogen Negative (Negative)
[2020-04-24 06:47] LABS: Urine Bacteria Absent (Absent); Urine Red Blood Cell 1+(3-5/hpf) (Absent); Urine White Blood Cell Trace(0-5/hpf) (Absent)
[2020-04-24] MEDS ORDERED: Labetalol IV 5 MG/ML 20 ml VIAL ONE (07:09)
[2020-04-24] MEDS: Labetalol IV 5 MG/ML 20 ml VIAL IV PUSH PRN ×2 (07:12→08:29)
[2020-04-24] MEDS: KCL 20 MEQ/100 ML IVPREMIX 20 MEQ/100 ML BAG IV SCH ×3 (08:35→13:13)
[2020-04-24 08:50] LABS: Magnesium 1.8 mg/dL (1.9-2.7)
[2020-04-24] MEDS ORDERED: levETIRAcetam 1000MG IVPREMIX 1,000 MG/100 ML BAG IVPB SCH (09:00)
[2020-04-24] MEDS: hydrALAZINE 20 mg/ml 1 ML Vial IV IV SLOW PU PRN ×2 (10:14→16:12)
[2020-04-24 17:00] LABS: Calcium 8.6 mg/dL (8.6-10.3); Potassium 3.9 mmol/L (3.5-5.0)
[2020-04-24 17:06] LABS: BUN/Creatinine Ratio 22.2 (8-20); EGFR African American 109.2 (>60); EGFR Non-African American 90.2 (>60)
[2020-04-24] MEDS: levETIRAcetam IV 750 MG in NS 0.9% 100 ml BAG 100 ML IVPB SCH (18:32)
[2020-04-25] MEDS: hydrALAZINE 20 mg/ml 1 ML Vial IV IV SLOW PU PRN (04:08)
[2020-04-25] MEDS: levETIRAcetam IV 750 MG in NS 0.9% 100 ml BAG 100 ML IVPB SCH ×2 (05:36→18:18)
[2020-04-25 06:03] LABS: ABS Lymphocytes 0.9 10^3/ul (1.0-4.8); ABS Monocytes 1.3 10^3/ul (0-0.8); ABS Neutrophils 8.6 10^3/ul (1.5-7.7); Eosinophil % 0.1 %; Hematocrit 35 % (35-47); Hemoglobin 11.9 g/dL (12.0-16.0); Lymphocyte % 8.5 %; Mean Corpuscular HGB Conc 34 g/dL (31-36); Mean Corpuscular Hemoglobin 29 pg (27-31); Mean Corpuscular Volume 84 fL (80-97); Mean Platelet Volume 7.9 fL (7.4-10.4); Platelet Count 189 10^3/uL (150-450); Red Blood Count 4.13 10^6 /uL (3.70-4.87); Red Cell Distribution Width 14 % (10-15); White Blood Count 10.8 10^3/uL (3.5-10.8)
[2020-04-25 06:25] LABS: Albumin 3.1 g/dL (3.2-5.2); Albumin/Globulin Ratio 1.3 (1-3); BUN/Creatinine Ratio 25.4 (8-20); Calcium 8.2 mg/dL (8.6-10.3); EGFR African American 117.8 (>60); EGFR Non-African American 97.3 (>60); Globulin 2.4 g/dL (2-4); Potassium 3.2 mmol/L (3.5-5.0); Total Bilirubin 0.5 mg/dL (0.2-1.0); Total Protein 5.5 g/dL (6.4-8.9)
[2020-04-25] MEDS: KCL 10 MEQ/50 ML IVPREMIX 10 MEQ/50 ML BAG IV SCH ×4 (08:04→11:52)
[2020-04-25] MEDS: NS 0.9% 1000 ml BAG 1,000 ML IV SCH ×2 (08:22→16:46)
[2020-04-25] MEDS ORDERED: Gadoteridol (CONTRAST) 279.3 MG/ML 10 ML IV ONE (15:07)
[2020-04-26] MEDS: hydrALAZINE 20 mg/ml 1 ML Vial IV IV SLOW PU PRN ×2 (00:16→12:12)
[2020-04-26] MEDS: Labetalol IV 5 MG/ML 20 ml VIAL IV PUSH PRN (03:37)
[2020-04-26] MEDS: levETIRAcetam IV 750 MG in NS 0.9% 100 ml BAG 100 ML IVPB SCH ×2 (07:47→18:30)
[2020-04-26] MEDS ORDERED: Potassium Chlor 20 meq TAB.ER PO ONE (16:40)
[2020-04-27] MEDS: hydrALAZINE 20 mg/ml 1 ML Vial IV IV SLOW PU PRN (00:08)
[2020-04-27] MEDS: Labetalol IV 5 MG/ML 20 ml VIAL IV PUSH PRN (03:25)
[2020-04-27 05:35] LABS: ABS Basophils 0.1 10^3/ul (0-0.2); ABS Lymphocytes 0.9 10^3/ul (1.0-4.8); ABS Neutrophils 7.7 10^3/ul (1.5-7.7); Eosinophil % 0.3 %; Hematocrit 35 % (35-47); Lymphocyte % 9.2 %; Mean Corpuscular HGB Conc 34 g/dL (31-36); Mean Corpuscular Hemoglobin 29 pg (27-31); Mean Corpuscular Volume 84 fL (80-97); Mean Platelet Volume 7.6 fL (7.4-10.4); Nucleated Red Blood Cells % 0.1; Platelet Count 219 10^3/uL (150-450); Red Blood Count 4.18 10^6 /uL (3.70-4.87); Red Cell Distribution Width 14 % (10-15); White Blood Count 9.7 10^3/uL (3.5-10.8)
[2020-04-27 06:02] LABS: BUN/Creatinine Ratio 24.2 (8-20); Calcium 8.6 mg/dL (8.6-10.3); EGFR African American 111.2 (>60); EGFR Non-African American 91.9 (>60); Potassium 3.2 mmol/L (3.5-5.0)
[2020-04-27] MEDS ORDERED: Potassium Chlor 20 meq TAB.ER PO ONE (09:00)
[2020-04-28] MEDS: hydrALAZINE 20 mg/ml 1 ML Vial IV IV SLOW PU PRN (04:00)
[2020-04-28 07:29] LABS: Calcium 8.8 mg/dL (8.6-10.3); EGFR African American 142.6 (>60); EGFR Non-African American 117.8 (>60); Magnesium 1.9 mg/dL (1.9-2.7); Potassium 3.4 mmol/L (3.5-5.0)
[2020-04-28] MEDS ORDERED: Potassium Chlor 20 meq TAB.ER PO ONE (09:00)
[2020-04-29 05:12] LABS: BUN/Creatinine Ratio 20.8 (8-20); Calcium 8.7 mg/dL (8.6-10.3); EGFR African American 133.3 (>60); EGFR Non-African American 110.2 (>60); Magnesium 1.8 mg/dL (1.9-2.7); Potassium 3.5 mmol/L (3.5-5.0)
[2020-04-29] MEDS ORDERED: Potassium Chlor 20 meq TAB.ER PO ONE (08:27)
[2020-04-29] MEDS ORDERED: Magnesium Sulfate 2 gm BAG 2 GM/50 ML BAG IVPB ONE (09:00)
[2020-04-29 11:54] VITALS: BP 138/58
[2020-05-02 20:58] LABS: Renin 1.4 ng/mL/h
== END 2020-04-29 15:00 | disposition home health service (06) | DRG 64 ==
LOC: ED 16:46 → ICU 04-24 01:02 → MEDTELE 04-25 11:10
PROVIDERS: ADMIT Pediatrics; ATTEND Internal Medicine

== ENCOUNTER 2020-06-03 19:48 | Inpatient (IN) ==
[2020-06-03 20:13] LABS: ABS Basophils 0.1 10^3/ul (0-0.2); ABS Eosinophils 0.1 10^3/ul (0-0.6); ABS Lymphocytes 1.7 10^3/ul (1.0-4.8); ABS Monocytes 0.6 10^3/ul (0-0.8); ABS Neutrophils 3.7 10^3/ul (1.5-7.7); Eosinophil % 1.6 %; Hematocrit 37 % (35-47); Hemoglobin 12.8 g/dL (12.0-16.0); Lymphocyte % 27.6 %; Mean Corpuscular HGB Conc 35 g/dL (31-36); Mean Corpuscular Hemoglobin 29 pg (27-31); Mean Corpuscular Volume 82 fL (80-97); Mean Platelet Volume 7.7 fL (7.4-10.4); Platelet Count 278 10^3/uL (150-450); Red Cell Distribution Width 14 % (10-15); White Blood Count 6.3 10^3/uL (3.5-10.8)
[2020-06-03 20:22] LABS: Albumin 4.3 g/dL (3.2-5.2); Albumin/Globulin Ratio 1.5 (1-3); BUN/Creatinine Ratio 20.5 (8-20); Calcium 9.8 mg/dL (8.6-10.3); EGFR African American 74.3 (>60); EGFR Non-African American 61.4 (>60); Globulin 2.9 g/dL (2-4); Potassium 3.7 mmol/L (3.5-5.0); Total Bilirubin 0.5 mg/dL (0.2-1.0); Total Protein 7.2 g/dL (6.4-8.9)
[2020-06-03 20:36] LABS: Urine Appearance Clear; Urine Bilirubin Negative (Negative); Urine Blood Negative (Negative); Urine Color Straw; Urine Glucose Negative (Negative); Urine Ketones Negative (Negative); Urine Nitrite Negative (Negative); Urine Protein Negative (Negative); Urine Specific Gravity 1.003 (1.010-1.030); Urine Urobilinogen Negative (Negative)
[2020-06-03 20:40] LABS: Urine Bacteria 1+ (Absent); Urine Red Blood Cell 1+(3-5/hpf) (Absent); Urine Squamous Epithelial Cell Present (Absent); Urine White Blood Cell 3+(>20/hpf) (Absent)
[2020-06-03] MEDS ORDERED: Piperacillin/Tazobac ADVAN 3.375 GM in NS 0.9% 100 ml BAG 100 ML IVPB ONE (21:25)
[2020-06-03] MEDS ORDERED: Iodixanol (CONTRAST) 320 MG/ML 100 ML SDV IV ONE (21:56)
[2020-06-03] MEDS ORDERED: Ondansetron 4 mg VIAL 2 MG/ML 2 ml VIAL IV PRN (22:22)
[2020-06-03] MEDS ORDERED: Labetalol IV 5 MG/ML 20 ml VIAL IV PUSH ONE (23:06)
[2020-06-04 00:09] LABS: TSH Ultra Thyroid Stim Horm 4.73 mcIU/mL (0.34-5.60)
[2020-06-04] MEDS ORDERED: Labetalol IV 5 MG/ML 20 ml VIAL IV PUSH PRN (00:29)
[2020-06-04] MEDS: cefTRIAXone 1 gm/50 mL NS BAG 1 GM/50 ML BAG IVPB SCH (05:26)
[2020-06-04 09:14] LABS: Calcium 8.9 mg/dL (8.6-10.3); EGFR African American 68.8 (>60); EGFR Non-African American 56.9 (>60); HDL Cholesterol 53.6 mg/dL; Potassium 3.1 mmol/L (3.5-5.0)
[2020-06-04 09:15] LABS: ABS Basophils 0.1 10^3/ul (0-0.2); ABS Lymphocytes 0.1 10^3/ul (1.0-4.8); ABS Monocytes 0.7 10^3/ul (0-0.8); ABS Neutrophils 18.4 10^3/ul (1.5-7.7); Eosinophil % 0.1 %; Hematocrit 37 % (35-47); Hemoglobin 12.2 g/dL (12.0-16.0); Lymphocyte % 0.7 %; Mean Corpuscular HGB Conc 34 g/dL (31-36); Mean Corpuscular Hemoglobin 28 pg (27-31); Mean Corpuscular Volume 83 fL (80-97); Mean Platelet Volume 7.4 fL (7.4-10.4); Platelet Count 235 10^3/uL (150-450); Red Blood Count 4.41 10^6 /uL (3.70-4.87); Red Cell Distribution Width 13 % (10-15); White Blood Count 19.3 10^3/uL (3.5-10.8)
[2020-06-04 12:21] LABS: C Reactive Protein 12.29 mg/L (<8.01)
[2020-06-05] MEDS: cefTRIAXone 1 gm/50 mL NS BAG 1 GM/50 ML BAG IVPB SCH (05:44)
[2020-06-05 15:34] VITALS: BP 144/64
== END 2020-06-05 18:07 | disposition home or self-care (01) | DRG 69 ==
LOC: ED 19:48 → MEDTELE 19:48
PROVIDERS: ADMIT Physician Assistant; ATTEND Internal Medicine

== ENCOUNTER 2022-08-27 23:39 | Observation (INO) ==
[2022-08-28] MEDS ORDERED: Lactated Ringers 1000 ml BAG 1,000 ML IV ONE ×2 (00:50→02:43)
[2022-08-28 01:30] LABS: ABS Lymphocytes 0.8 10^3/ul (1.0-4.8); ABS Monocytes 0.6 10^3/ul (0-0.8); ABS Neutrophils 10.4 10^3/ul (1.5-7.7); Eosinophil % 0.3 %; Hematocrit 33 % (35-47); Hemoglobin 10.9 g/dL (12.0-16.0); Lymphocyte % 6.9 %; Mean Corpuscular HGB Conc 33 g/dL (31-36); Mean Corpuscular Hemoglobin 28 pg (27-31); Mean Corpuscular Volume 85 fL (80-97); Mean Platelet Volume 7.5 fL (7.4-10.4); Platelet Count 189 10^3/uL (150-450); Red Blood Count 3.94 10^6 /uL (3.70-4.87); Red Cell Distribution Width 14 % (10-15); White Blood Count 11.9 10^3/uL (3.5-10.8)
[2022-08-28 01:43] LABS: INR 0.94 (0.88-1.18)
[2022-08-28 01:55] LABS: High Sens Troponin Baseline 4 pg/mL (<15)
[2022-08-28 02:13] LABS: ALT 33 U/L (7-52); AST 36 U/L (13-39); Albumin 3.9 g/dL (3.2-5.2); Albumin/Globulin Ratio 1.8 (1-3); Alkaline Phosphatase 110 U/L (35-149); Anion Gap 9 mmol/L (2-11); Blood Urea Nitrogen 31 mg/dL (6-24); CO2 Carbon Dioxide 20 mmol/L (22-32); Calcium 8.8 mg/dL (8.6-10.3); Chloride 101 mmol/L (101-111); Globulin 2.2 g/dL (2-4); Glucose 102 mg/dL (70-100); Magnesium 1.9 mg/dL (1.9-2.7); Potassium 4.6 mmol/L (3.5-5.0); Sodium 130 mmol/L (135-145); Total Protein 6.1 g/dL (6.4-8.9); eGFR CKD-EPI 61.8 (>60)
[2022-08-28 03:04] LABS: High Sensitivity Troponin 1 Hr 3 pg/mL (<15)
[2022-08-28] MEDS ORDERED: NS 0.9% 1000 ml BAG 1,000 ML IV SCH (03:30)
[2022-08-28 04:10] LABS: Urine Appearance Clear; Urine Bilirubin Negative (Negative); Urine Blood Negative (Negative); Urine Color Straw; Urine Glucose Negative (Negative); Urine Ketones 1+ (15mg/dL) (Negative); Urine Nitrite Negative (Negative); Urine Protein Negative (Negative); Urine Specific Gravity 1.015 (1.005-1.030); Urine Urobilinogen 0.2 (Negative) (Negative)
[2022-08-28 06:12] LABS: C Reactive Protein < 1.00 mg/L (<8.01)
[2022-08-28 16:25] VITALS: BP 174/65
== END 2022-08-28 16:22 | disposition home or self-care (01) ==
LOC: ED 23:39 → EDHOLD 08-28 03:25 → INTOOBSV 08-28 03:25 → SUATTDRO 08-28 03:25 → EDHOLD 08-28 16:21
PROVIDERS: ADMIT Internal Medicine; ATTEND Internal Medicine